=== PATIENT | female | born 1960 | race African-American/Black ===

== ENCOUNTER → 2016-12-04 | Outpatient (CLI) | payer MEDICARE ==
[2016-12-04 10:26] LABS: BILIRUBIN,URINE NEGATIVE (NEG); GLUCOSE,URINE NEGATIVE (NEG); NITRITE,URINE NEGATIVE (NEG); PH,URINE 6.5; PROTEIN,URINE NEGATIVE (NEG-TRACE)
[2016-12-04 10:35] LABS: ALBUMIN 3.5 g/dL (3.4-5.0); ALBUMIN/GLOBULIN RATIO 0.9 (1.0-1.7); CALCIUM 9.2 mg/dL (8.5-10.1); CREATININE 0.5 mg/dL (0.6-1.0); GFR 154.4; TOTAL BILIRUBIN 0.4 mg/dL (0.2-1.0); TOTAL PROTEIN 7.5 g/dL (6.4-8.2)
[2016-12-04 10:36] LABS: CHOLESTEROL/HDL RATIO 2.7
[2016-12-04 10:40] LABS: BACTERIA,URINE MODERATE /HPF (0-FEW); RBC,URINE OCC /HPF (0-2); SQUAMOUS EPITHELIAL CELL,UR MANY /LPF
--- NOTE | 2016-12-04 11:26 | RAD ---
Indication: Hyperlipidemia. Technique: Two-view chest radiograph was obtained. No comparison is available. Findings: The lungs are clear. There is no pleural effusion. The heart is not enlarged and there is no heart failure. Bony structures are intact. Impression: No acute thoracic findings.
[2016-12-04 18:11] LABS: T3 UPTAKE 30 % (24-39); THYROXINE 7.5 ug/dL (4.5-12.0)
== END | disposition home or self-care (01) ==
LOC: RAD 08:40
PROVIDERS: ATTEND Internal Medicine Cardiovascular Disease
DX: E78.5 Hyperlipidemia, unspecified (principal); Z87.891 Personal history of nicotine dependence; E66.9 Obesity, unspecified
CPT/HCPCS: 36415; 71020; 80053; 80061; 81001; 83036; 84436; 84479; 86141

== ENCOUNTER 2017-10-24 19:15 | Emergency (ER) | payer MEDICARE | END 2017-10-24 21:11 | disposition home or self-care (01) | LOC: ER 19:15 | DX: S93.401A Sprain of unspecified ligament of right ankle, initial encounter (principal); W18.40XA Slipping, tripping and stumbling without falling, unspecified, initial encounter; Y93.89 Activity, other specified; Y92.89 Other specified places as the place of occurrence of the external cause; Y99.8 Other external cause status | CPT/HCPCS: 73610; 99284 ==